=== PATIENT | female | born 1985 | race Caucasian/White ===

== ENCOUNTER 2018-01-07 13:09 | Emergency (ER) | payer MEDICAID ==
[2018-01-07 13:14] VITALS: BP 156/82; PULSE 94; RESP 18; TEMP 98; O2SAT 99
--- NOTE | 2018-01-07 13:23 | ED PDOC ---
HPI: General Adult Time Seen by Provider: 01/07/18 13:20 Chief Complaint (Nursing): Flu-like Symptoms Chief Complaint (Provider): Sneezing, Headache, Rhinnorhea History Per: Patient History/Exam Limitations: no limitations Onset/Duration Of Symptoms: Days (x3) Current Symptoms Are (Timing): Still Present Additional Complaint(s): 32 year old female presents to the emergency department complaining of frontal headache, sneezing and rhinnorhea associated with generalized weakness x3 days. Patient reports that she has taken advil for the headache but it has offered her no relief. Denies, fever, chest pain and history of allergies. PMD: Dr. Laura Interiano - [place] Past Medical History Reviewed: Historical Data, Nursing Documentation, Vital Signs Vital Signs: Last Vital Signs Temp 98.0 F 01/07/18 13:12 Pulse 94 H 01/07/18 13:12 Resp 18 01/07/18 13:12 BP 156/82 H 01/07/18 13:12 Pulse Ox 99 01/07/18 13:29 - Medical History PMH: No Chronic Diseases - Surgical History Surgical History: No Surg Hx - Family History Family History: States: Unknown Family Hx - Home Medications Home Medications: Ambulatory Orders Medication Instructions Recorded Naproxen [Naprosyn] 500 mg PO BID PRN #30 tab 03/05/16 Penicillin V Potassium 500 mg PO Q6 #40 tablet 03/05/16 Naproxen 375 mg PO Q8 PRN #15 tablet 01/07/18 Pseudoephedrine [Sudafed Tab] 60 mg PO Q6 PRN #24 tab 01/07/18 - Allergies Allergies/Adverse Reactions: Allergies Allergy/AdvReac Type Severity Reaction Status Date / Time No Known Allergies Allergy Verified 03/05/16 18:31 Review of Systems ROS Statement: Except As Marked, All Systems Reviewed And Found Negative Constitutional: Positive for: Other (sneezing). Negative for: Fever ENT: Positive for: Nose Discharge, Nose Congestion, Throat Pain Respiratory: Negative for: Cough Neurological: Positive for: Headache (frontal) Physical Exam - Reviewed Nursing Documentation Reviewed: Yes Vital Signs Reviewed: Yes - Physical Exam Appears: Positive for: Non-toxic, No Acute Distress Head Exam: Positive for: NORMAL INSPECTION Skin: Positive for: Normal Color, Warm, Dry. Negative for: Rash Eye Exam: Positive for: Normal appearance, EOMI, PERRL. Negative for: Nystagmus ENT: Positive for: Pharynx Is (clear), TM Is/Are (normal), Nasal Congestion. Negative for: Sinus Pain/Drainage, Pharyngeal Erythema, Tonsillar Exudate, Tonsillar Swelling Cardiovascular/Chest: Positive for: Regular Rate, Rhythm, Chest Non Tender. Negative for: Tachycardia Respiratory: Positive for: Normal Breath Sounds (lungs clear to auscultation). Negative for: Rales, Rhonchi, Wheezing, Respiratory Distress Neurologic/Psych: Positive for: Alert, Oriented, Gait - ECG O2 Sat by Pulse Oximetry: 99 (RA) Pulse Ox Interpretation: Normal - Progress ED Course And Treament: rapid strep negative pseudoephedrine 60 mg x 1 dose acetaminophen 975mg x 1 dose Medical Decision Making Medical Decision Makin Initial Impression 32 year old female presenting with sneezing, frontal headache and rhinnorhea Initial Plan: * Tylenol 975mg PO * Sudafed Oral Syrup 60mg PO * Rapid Strep Group * Reevaluation Documented by Lizette Wise acting as a scribe for Erasto Cole PA-C. All medical record entries made by the Scribe were at my direction and personally dictated by me. I have reviewed the chart and agree that the record accurately reflects my personal performance of the history, physical exam, medical decision making, and the department course for this patient. I have also personally directed, reviewed, and agree with the discharge instructions and disposition. Disposition - Clinical Impression Clinical Impression: Viral sinusitis - Patient ED Disposition Is Patient to be Admitted: No - Disposition Disposition: Routine/Home Disposition Time: 14:07 Condition: FAIR Prescriptions: Naproxen 375 mg PO Q8 PRN #15 tablet PRN Reason: Pain, Moderate (4-7) Pseudoephedrine [Sudafed Tab] 60 mg PO Q6 PRN #24 tab PRN Reason: Nasal Congestion Instructions: Viral Upper Respiratory Infection, Adult (DC) Forms: [employer] (Macedonian), [facility] ED School/Work Excuse
== END 2018-01-07 14:23 | disposition home or self-care (01) ==
LOC: H.ER 13:09
DX: J32.9 Chronic sinusitis, unspecified (principal)